=== PATIENT | male | born 2000 | race African-American/Black ===

== ENCOUNTER 2022-08-16 15:39 | Emergency (ER) | payer SELFPAY ==
[~2022-08-16] VITALS: Ht 182.9 cm; Wt 79.0 kg
[2022-08-16 15:44] VITALS: BP 164/85
== END 2022-08-16 19:40 | disposition home or self-care (01) ==
LOC: ER 15:39
DX: R07.89 Other chest pain (principal); R05.9 Cough, unspecified
CPT/HCPCS: 71045; 93005; 99283

== ENCOUNTER 2023-05-30 15:37 | Emergency (ER) | payer MEDICAID ==
[~2023-05-30] VITALS: Ht 188 cm; Wt 79.0 kg
[2023-05-30 15:51] VITALS: BP 131/81; PULSE 81; RESP 20; TEMP 98.4; O2SAT 100
== END 2023-05-30 17:08 | disposition home or self-care (01) ==
LOC: ER 15:37
DX: S61.211A Laceration without foreign body of left index finger without damage to nail, initial encounter (principal); X58.XXXA Exposure to other specified factors, initial encounter; Y93.89 Activity, other specified; Y92.89 Other specified places as the place of occurrence of the external cause; Y99.8 Other external cause status
CPT/HCPCS: 12001; 99282; Z7610